=== PATIENT | female | born 2000 | race Caucasian/White ===

== ENCOUNTER 2023-05-14 17:24 | Emergency (ER) | payer MEDICAID ==
[2023-05-13 19:50] VITALS: O2SAT 97
[~2023-05-14] VITALS: Ht 157.5 cm; Wt 59.0 kg
--- NOTE | 2023-05-14 18:05 | NUR ---
COUGHING SINCE THE WITH WHEEZING, HAS HX OF ASTHMA, phlegm clear,afebrile
--- NOTE | 2023-05-14 18:15 | NUR ---
dr calderon at bedside for eval
[2023-05-14 18:50] VITALS: O2SAT 97
[2023-05-14] MEDS ORDERED: ALBUTEROL FS 2.5 MG/3 ML VIAL.NEB ONE (18:51)
[2023-05-14] MEDS ORDERED: IPRATROPIUM NEB FS 0.5 MG/2.5 ML AMPUL.NEB ONE (18:51)
[2023-05-14] MEDS ORDERED: ALBUTEROL FS 2.5 MG/3 ML VIAL.NEB NEB ONE (19:00)
[2023-05-14] MEDS ORDERED: IPRATROPIUM NEB FS 0.5 MG/2.5 ML AMPUL.NEB NEB ONE (19:00)
--- NOTE | 2023-05-14 19:02 | NUR ---
rt at bedside , breathing treatmnt
[2023-05-14 19:05] VITALS: O2SAT 99
[2023-05-14] MEDS ORDERED: ALBU18HF2 INH (19:08)
--- NOTE | 2023-05-14 19:32 | NUR ---
Patient discharged to home in stable condition. Written and verbal after care instructions given. Patient verbalizes understanding of instruction.
[2023-05-14 19:33] VITALS: BP 112/71; TEMP 98.1; O2SAT 99
== END 2023-05-14 19:28 | disposition home or self-care (01) ==
LOC: ER 17:38
DX: J45.901 Unspecified asthma with (acute) exacerbation (principal); Z79.899 Other long term (current) drug therapy
CPT/HCPCS: 71045-TC; 94799-TC